=== PATIENT | female | born 1945 ===

== ENCOUNTER 2017-01-26 09:17 | Day surgery (SDC) | payer MEDICARE, OTHER ==
--- NOTE | 2017-01-24 15:00 | Pre-op HX & Phy Repo 2 SIG ---
DATE OF ADMISSION: 01/26/2017 Scheduled for outpatient surgery on 01/26/2017. HISTORY OF PRESENT ILLNESS: The patient is a 71-year-old female, in overall stable health with a long history of a cyst in the right groin, which is increasing in size and associated with discomfort. She has not had any drainage or infection. She is going to undergo excision of this enlarging cyst. MEDICATIONS: Omeprazole, levothyroxine, Celexa, and supplements. ALLERGIES: None. OPERATIONS: D and C x2, back surgery 2012, and gastric sleeve surgery 07/18/2016. REVIEW OF SYSTEMS: The patient denies any history of sleep apnea. PHYSICAL EXAMINATION: GENERAL: The patient is 5 foot 5 inches, 180 pounds. In the past, she was 230 pounds. Pertinent exam reveals soft abdomen. Femoral pulses are 2+. There is no inguinal lymphadenopathy. There was a 3 x 3 cm cystic structure in the right lateral vulva/groin area. EXTREMITIES: Without edema. IMPRESSION: Enlarging cyst of right groin. PLAN: Excision of cyst. DISCUSSION: I have had a full discussion with the patient regarding the nature of her condition, the nature of the surgery, indications, alternatives, options, and risks including bleeding, infection, recurrence, need for additional procedures, pending final pathology, scarring, etc. All questions have been answered. She understands and agrees to proceed as an outpatient under general anesthesia. Gavino Spencer M.D. DR: MANDI/KATHRYN JOB#: [id number] CC:
[2017-01-26] VITALS (10 sets, daily range): BP systolic 110–143; BP diastolic 60–75
[~2017-01-26] VITALS: Ht 165.1 cm; Wt 81.6 kg
[2017-01-26] MEDS ORDERED: LEVOTHYROXINE50 MCG ORAL (10:01)
[2017-01-26] MEDS ORDERED: CELEXA20 MG ORAL (10:01)
[2017-01-26] MEDS ORDERED: OMEPRAZOLE40 M1 ORAL (10:01)
--- NOTE | 2017-01-26 10:34 | Anethesia Preoperative Eval ---
Anesthesia Pre-op PMH/ROS General Date of Evaluation: Jan 26, 2017 Anesthesiologist: Yahir ASA Score: ASA 2 Mallampati Score Class I : Soft palate, uvula, fauces, pillars visible Class II: Soft palate, uvula, fauces visible Class III: Soft palate, base of uvula visible Class IV: Only hard plate visible Mallampati Classification: Class II Surgeon: Tj Diagnosis: Right groin cyst Surgical Procedure: Excision right groin cyst Anesthesia History: none Family History: no anesthesia problems Allergies: Coded Allergies: No Known Allergies (Unverified , 01/26/17) Medications: see eMAR Past Medical History Cardiovascular: Reports: other - HLD, Denies: HTN, CAD, HI, valve dz, arrhythmia Pulmonary: Denies: asthma, COPD, JESSIE, other Gastrointestinal/Genitourinary: Reports: GERD, Denies: CRI, ESRD, other Neurologic/Psychiatric: Reports: depression/anxiety, Denies: dementia, CVA, TIA, other Endocrine: Reports: hypothyroidism, Denies: DM, steroids, other HEENT: Denies: cataract (L), cataract (R), glaucoma, PILOT STATION (L), PILOT STATION (R), other Hematology/Immune: Denies: anemia, DVT, bleeding disorder, other Musculoskeletal/Integumentary: Denies: OA, RA, DJD, DDD, edema, other PSxH Narrative: gastric sleeve, D&C, lumbar fusion Anesthesia Pre-op Phys. Exam Physician Exam Last Vital Signs Date Time Temp Pulse Resp B/P (MAP) Pulse Ox O2 Delivery O2 Flow Rate FiO2 01/26/17 10:05 97.4 58 18 137/60 95 Room Air Constitutional: NAD Cardiovascular: RRR Respiratory: CTA Airway Exam Mallampati Score: Class II MO: full ROM: full Anesthesia Pre-op A/P Labs see chart Studies Pre-op Studies: EKG - sr Risk Assessment & Plan Assessment: ASA II Plan: GA Status Change Before Surgery: No Pre-Antibiotics Drug: Ancef 2g Given Within 1 Hr of Incision: ABUNDIO Thyaer M.D. Jan 26, 2017 10:34
[2017-01-26] MEDS ORDERED: LR 1000ml 1,000 ML IVLG SCH (10:35)
[2017-01-26] MEDS ORDERED: fentaNYL 100 mcg/2 mL IV PRN (10:45)
[2017-01-26] MEDS ORDERED: DiphenhydrAMINE 50mg/ml Inj IVP PRN (10:45)
[2017-01-26] MEDS ORDERED: Hydromorphone 0.5mg/0.5ml inj IVP PRN (10:45)
--- NOTE | 2017-01-26 10:47 | Pre-Procedure Note/Attestation ---
Pre-Procedure Note/Attestation Complete Prior to Procedure Planned Procedure: right Procedure Narrative: excision of cyst right groin Indications for Procedure Pre-Operative Diagnosis: cyst right groin Attestation I attest that I discussed the nature of the procedure; its benefits; risks and complications; and alternatives (and the risks and benefits of such alternatives ), prior to the procedure, with the patient (or the patient's legal client service representative). I attest that, if there was a reasonable possibility of needing a blood transfusion, the patient (or the patient's legal client service representative) was given the [facility] standardized written summary, pursuant to the Rodney Monica Blood Safety Act ([place] Health and Safety Code # 1645, as amended). I attest that I re-evaluated the patient just prior to the surgery and that there has been no change in the patient's H&P, except as documented below: none SHAN SANCHEZ Jan 26, 2017 10:47
[2017-01-26] MEDS ORDERED: Sterile Water Irrig 1000ml IRRIG ONE (11:00)
[2017-01-26] MEDS ORDERED: LR 1000ml ONE (11:00)
[2017-01-26] MEDS ORDERED: NS Irrig 1000ml ONE (11:00)
[2017-01-26] MEDS ORDERED: fentaNYL 100 mcg/2 mL IV ONE (11:00)
[2017-01-26] MEDS ORDERED: Lidocaine 1% MPF 10mg/ml 5ml ONE (11:00)
[2017-01-26] MEDS ORDERED: Propofol 200mg/20ml IV ONE (11:20)
[2017-01-26] MEDS ORDERED: Lidocaine 1% 10mg/ml/EPI 0.01mg/ml 50ml INJ ONE (11:20)
[2017-01-26] MEDS ORDERED: Bupivacaine 0.5% Inj 30 ml vial INJ ONE (11:20)
[2017-01-26] MEDS ORDERED: Bupivacaine 0.25% Inj 30ml INJ ONE (11:20)
[2017-01-26] MEDS ORDERED: NS Irrig 1000ml IRRIG ONE (11:46)
--- NOTE | 2017-01-26 12:13 | Immediate Post-Op Evaluation ---
Immediate Post-Op Evalulation Immediate Post-Op Evalulation Procedure: Excision of right groin cyst Date of Evaluation: Jan 26, 2017 Time of Evaluation: 12:15 IV Fluids: 500 Blood Products: 0 Estimated Blood Loss: min Urinary Output: 0 Blood Pressure Systolic: 148 Blood Pressure Diastolic: 72 Pulse Rate: 65 Respiratory Rate: 16 O2 Sat by Pulse Oximetry: 100 Temperature (Fahrenheit): 99 Pain Score (1-10): 0 Nausea: No Vomiting: No Complications 0 Patient Status: awake, reacts, patent, none Hydration Status: adequate Drug: Ancef 2g Given Within 1 Hr of Incision: Yes Time Given: 11:30 ABUNDIO CHINCHILLA M.D. Jan 26, 2017 12:13
--- NOTE | 2017-01-26 12:13 | Brief Operative Note ---
Immediate Post Operative Note Operative Note Pre-op Diagnosis: cyst right groin Procedure: excision of cyst right groin Post-op Diagnosis: sebaceous cyst right groin Post-op Diagnosis: same as pre-op Findings: consistent w/pre-op dx studies Surgeon: kesha Anesthesiologist: melina Specimen: yes - cyst Complications: none Condition: stable Fluids: minimal Estimated Blood Loss: none Drains: none Implant(s) used?: No SHAN SANCHEZ Jan 26, 2017 12:13
--- NOTE | 2017-01-26 12:14 | 48 Hour Post Anesthesia Eval ---
Post Anesthesia Evaluation Procedure: Excision of right groin cyst Date of Evaluation: Jan 26, 2017 Airway: patent Nausea: No Vomiting: No Pain Intensity: 0 Hydration Status: adequate Cardiopulmonary Status: at baseline Mental Status/LOC: patient returned to baseline Post-Anesthesia Complications: 0 Follow-up care needed: ready to discharge ABUNDIO CHINCHILLA M.D. Jan 26, 2017 12:14
[2017-01-26] MEDS ORDERED: HYDROmorphone 1mg/ml Carpuject SUBQ PRN (12:15)
[2017-01-26] MEDS ORDERED: Norco 5mg/325mg tab ORAL PRN (12:15)
[2017-01-26] MEDS ORDERED: D5 1/2NS 1,000 ML IV SCH (12:15)
--- NOTE | 2017-01-26 16:15 | Operative Note - Dictated ---
DATE OF OPERATION: 01/26/2017 SURGEON: Gavino Spencer M.D. PHARMACY TECHNICIAN INSTRUCTOR: None. ANESTHESIOLOGIST: Dr. Sinclair. TYPE OF ANESTHESIA: General by LMA. PREOPERATIVE DIAGNOSIS: Cyst of right groin. POSTOPERATIVE DIAGNOSIS: Large sebaceous cyst of right groin. OPERATION PERFORMED: Excision of cyst of right groin. PROCEDURE: The patient was taken to the operating room and under general anesthesia with sequential compression device stockings in place, she was prepped and draped in the usual fashion. The 3 x 4 centimeter cyst was located in the right groin crease. The patient had her right lower extremity put in frogleg position supported by pillows. A linear incision was made overlying the cyst with a elliptical incision because of skin attachment to the cyst itself and careful dissection was performed circumferentially excising the cyst from the subcutaneous tissues and recognizing it to be a sebaceous cyst. It was given off the field for specimen. Hemostasis was carefully achieved with cautery and the field irrigated with saline. The incision was closed with interrupted subcutaneous 4-0 Vicryl followed by continuous 4-0 Monocryl subcuticular suture. Then, Dermabond was applied. After it had dried, I placed a small strip of Telfa and a very small Tegaderm to seal the area. The patient tolerated the procedure well and left the operating room in good condition. Gavino Spencer M.D. DR: GABY JOB#: [id number] CC:
== END 2017-01-26 14:05 | disposition home or self-care (01) ==
LOC: SUR 09:17
DX: L72.3 Sebaceous cyst (principal); E78.5 Hyperlipidemia, unspecified; K21.9 Gastro-esophageal reflux disease without esophagitis; F32.9 Major depressive disorder, single episode, unspecified; F41.9 Anxiety disorder, unspecified; E03.9 Hypothyroidism, unspecified; Z98.84 Bariatric surgery status
CPT/HCPCS: 11404; 12032; J0690; J1170; J2704; J3010; J7120; 94003; 94150